=== PATIENT | male | born 1975 | race Asian ===

== ENCOUNTER 2017-04-05 05:44 | Emergency (ER) | payer BC ==
[2017-04-05 06:02] VITALS: BP 153/104; TEMP 98.5; O2SAT 97
[2017-04-05] MEDS ORDERED: COLCHICINE 0.6 MG TAB PO ONE (06:08)
--- NOTE | 2017-04-05 06:11 | ED.PDOC ---
History of Present Illness - General Chief Complaint: Lower Extremity Injury Stated Complaint: right foot pain Time Seen by Provider: 04/05/17 06:04 Source: patient Exam Limitations: no limitations - History of Present Illness Initial Comments: the patient is a 41-year-old male presenting to the emergency room secondary to pain in his right first metatarsophalangeal joint. Pain has been present for 1 day. Pain is worse with movement and palpation. There is mild erythema over the site. No other areas of inflammation. His father did have gout a few months ago. No fever. No obvious extending cellulitis. Timing/Duration: 24 hours Severity: moderate Improving Factors: immobilization Worsening Factors: movement Associated Symptoms: denies symptoms Allergies/Adverse Reactions: Allergies NO KNOWN ALLERGY Allergy (Verified 04/05/17 05:57) Home Medications: Ambulatory Orders Colchicine [Colcrys] 0.6 mg PO PRN #10 tab 04/05/17 Review of Systems - Review of Systems Constitutional: States: no symptoms reported EENTM: States: no symptoms reported Respiratory: States: no symptoms reported Cardiology: States: no symptoms reported Gastrointestinal/Abdominal: States: no symptoms reported Genitourinary: States: no symptoms reported Musculoskeletal: States: see HPI Skin: States: see HPI Neurological: States: no symptoms reported Endocrine: States: no symptoms reported All other Systems: No Change from Baseline Past Medical History (General) - Patient Medical History Hx Congestive Heart Failure: No Hx Diabetes: No Surgical History: no surgical history - Vaccination History Hx Influenza Vaccination: No - Social History Hx Tobacco Use: No Family Medical History - Family History Father Family History: Unknown Living Status: Unknown Physical Exam - Physical Exam General Appearance: Alert, No apparent distress Eye Exam: bilateral normal Ears, Nose, Throat: hearing grossly normal Neck: full range of motion Respiratory: no respiratory distress, no accessory muscle use Cardiovascular/Chest: normal peripheral pulses, no edema Peripheral Pulses: radial,right: 2+, radial,left: 2+, dorsalis pedis,right: 2+, dorsalis pedis,left: 2+ Rectal Exam: deferred Extremity: normal range of motion, no pedal edema, no calf tenderness, normal capillary refill, inflammation, swelling, other - see history of present illness 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 The patient is given 1.2 mg of colchicine. He will be written for a prescription of colchicine. He needs to improve his hydration status. He needs to keep the foot warm. He needs to avoid large alcohol or meat intakes. If he has multiple recurrent flares then he may need to see his primary care doctor for additional lab testing for possible prophylactic medications. ER warnings were given for any significant worsening. Departure - Departure Clinical Impression: Podagra Disposition: Discharge to Home or Self Care Condition: Fair Departure Forms: ED Discharge - Pt. Copy, Patient Portal Self Enrollment Instructions: DI for Gout Diet: other - low protein and low alcohol diet Activity: increase activity as tolerated Prescriptions: Colchicine [Colcrys] 0.6 mg PO PRN #10 tab Home Medications: Ambulatory Orders Colchicine [Colcrys] 0.6 mg PO PRN #10 tab 04/05/17 Additional Instructions: the patient's 41-year-old male presenting with what appears to be his first episode of podagra on the right. The patient is given 1.2 mg of colchicine. He will be written for a prescription of colchicine. He needs to improve his hydration status. He needs to keep the foot warm. He needs to avoid large alcohol or meat intakes. If he has multiple recurrent flares then he may need to see his primary care doctor for additional lab testing for possible prophylactic medications. ER warnings were given for any significant worsening. he should follow-up with his primary care doctorearly next week regardless.
== END 2017-04-05 06:24 | disposition home or self-care (01) ==
LOC: ER 05:44
DX: M10.9 Gout, unspecified (principal)

== ENCOUNTER 2017-05-16 23:57 | Emergency (ER) | payer BC ==
[2017-05-17] MEDS ORDERED: HYDROmorphone HCL INJ 2 MG/ML VIAL IV ONE
[2017-05-17] MEDS ORDERED: ONDANSETRON INJ 4 MG/2 ML VIAL IV ONE
[2017-05-17] MEDS ORDERED: SODIUM CHLORIDE 0.9% 1000ML 1,000 ML IVS ONE (00:03)
--- NOTE | 2017-05-17 00:04 | ED.PDOC ---
History of Present Illness - General Chief Complaint: Abdominal Pain Stated Complaint: abdominal pain Time Seen by Provider: 05/16/17 23:59 Information Source: patient, RN notes reviewed, Vital Signs reviewed Exam Limitations: no limitations Additional Information: Epigastric and RUQ colicky pain intermittent over the past several days, worsening today. N/V associated with pain over the past several days as well. Pain worse after eating fatty foods such as reis and rice. 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 Improving Factors: nothing Associated Symptoms: nausea/vomiting - intermittent Review of Systems - Review of Systems Constitutional: States: no symptoms reported EENTM: States: no symptoms reported Respiratory: States: no symptoms reported Cardiology: States: no symptoms reported Gastrointestinal/Abdominal: States: see HPI, abdominal pain Genitourinary: States: no symptoms reported Musculoskeletal: States: no symptoms reported Skin: States: no symptoms reported Neurological: States: no symptoms reported Endocrine: States: no symptoms reported Hematologic/Lymphatic: States: no symptoms reported Past Medical History (General) - Patient Medical History Hx Congestive Heart Failure: No Hx Diabetes: No - Vaccination History Hx Influenza Vaccination: No - Social History Hx Tobacco Use: No Family Medical History - Family History Father Family History: Unknown Living Status: Unknown Physical Exam - Physical Exam General Appearance: Alert, Restless - initially, improved s/p Dilaudid Eyes, Ears, Nose, Throat Exam: PERRL/EOMI, normal ENT inspection - no scleral icterus Neck: non-tender, full range of motion, supple Respiratory: no respiratory distress, no accessory muscle use Cardiovascular/Chest: normal peripheral pulses, regular rate, rhythm, no edema Gastrointestinal/Abdominal: soft, tenderness - positive hadley's sign. Tenderness in epigastric and RUQ region. 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 findings consistent with Cholecystitis. Pt stable for discharge home with strict return precautions, need to follow a low-fat/no-fat diet, and follow-up with surgeon as an outpatient. 05/17/17 01:27 CT Scan Report: EXAM DESCRIPTION: Abdomen/Pelvis w/Contrast CLINICAL HISTORY: 41 years Male, periumbilical abdominal pain, colic, writhing COMPARISON: None. TECHNIQUE: Contiguous axial CT images of the abdomen and pelvis were acquired after the administration of intravenous contrast. Coronal and sagittal reformatted images are provided. This exam was performed according to our departmental dose-optimization program which includes use of Automated Exposure Control, adjustment of the mA and/or kV according to patient size and/or use of iterative reconstruction technique. FINDINGS: Chest base: There is mild bibasilar atelectasis. Liver: Findings suggestive of diffuse hepatic steatosis. No focal lesions. Gallbladder: Diffuse gallbladder wall thickening and edema without radiopaque stone. Spleen: Unremarkable. Adrenals: Unremarkable. Pancreas: Unremarkable. Right Kidney: No renal stones or hydronephrosis. Left Kidney: No renal stones or hydronephrosis. Aorta and branch vessels: Unremarkable. Lymph nodes: No lymphadenopathy. Bowels: No obstruction. Colon: No wall thickening. Appendix: Normal. Peritoneum: No free air or free fluid. Pelvic organs: Unremarkable. Bladder: Unremarkable. Bones and soft tissues: No acute osseous or soft tissue abnormalities. IMPRESSION: Diffuse gallbladder wall thickening and edema. Although no radiopaque stone is identified, these findings are concerning for acute cholecystitis. Hepatic steatosis. Electronically signed by: Alfie Landin MD 05/17/2017 12:59 AM AUTOMATIC DRY STARCH OPERATOR Dictated By: ALFIE LANDIN Dr. Signed By: ALFIE LANDIN Dr. Dictated Date/Time: 05/17/17 0001 Transcribed Date/Time: 05/17/17 0001 Leather Tacker: COURTNEY Signed Date/Time: 05/17/17 0059 CC: - Results/Orders Results/Orders: 05/17/17 00:02 Hold Metformin x 48Hrs [id number] Laboratory Results - last 24 hr 05/17/17 05/17/17 05/17/17 00:08 00:08 01:00 WBC 12.0 H RBC 6.13 H Hgb 17.8 Hct 52.0 MCV 84.8 MCH 29.0 MCHC 34.2 RDW 12.4 Plt Count 244 MPV 7.8 Absolute Neuts (auto) 7.00 H Absolute Lymphs (auto) 3.30 Absolute Monos (auto) 1.10 H Absolute Eos (auto) 0.50 H Absolute Basos (auto) 0.00 Neutrophils % 58.4 Lymphocytes % 27.3 Monocytes % 9.4 H Eosinophils % 4.6 Basophils % 0.3 Sodium 138 Potassium 3.9 Chloride 100 L Carbon Dioxide 28 Anion Gap 13.9 BUN 15 Creatinine 0.63 BUN/Creatinine Ratio 23.8 H Random Glucose 121 H Serum Osmolality 277.8 Calcium 9.7 Total Bilirubin 2.0 H AST 70 H ALT 86 H Alkaline Phosphatase 92 Serum Total Protein 8.2 Albumin 4.6 Globulin 3.6 H Albumin/Globulin Ratio 1.3 Urine Color Yellow Urine Appearance Clear Urine pH 7.5 Ur Specific [place] 1.015 Urine Protein Negative Urine Glucose (UA) Negative Urine Ketones Trace Urine Blood Negative Urine Nitrite Negative Urine Bilirubin Negative Urine Urobilinogen 1.0 Ur Leukocyte Esterase Negative Urine RBC 0 Urine WBC 0 Ur Epithelial Cells 0 Amorphous Sediment 2+ Urine Bacteria 1+ 05/17/17 05/17/17 00:00 01:00 Temperature 97.8 F Pulse Rate [ 87 90 monitor] Respiratory 22 18 Rate Blood Pressure 187/135 153/91 [left arm] O2 Sat by Pulse 98 Oximetry - EKG/XRAY/CT CT: Abd/Pelvis - see above Departure - Departure Clinical Impression: Biliary colic, Cholecystitis Time of Disposition: 01:49 Disposition: Discharge to Home or Self Care Condition: Fair Departure Forms: ED Discharge - Pt. Copy, Patient Portal Self Enrollment Instructions: DI for Cholecystitis Diet: low fat, low cholesterol - No fatty foods. Referrals: Gunner Mendoza MD [Active Staff] - 1-5 Days (Call Dr. Mendoza's office in the am on 17 May 2017 in order to schedule a follow-up.) Home Medications: Ambulatory Orders Colchicine [Colcrys] 0.6 mg PO PRN #10 tab 04/05/17 Additional Instructions: Low Fat/No Fat diet. Stay well hydrated with water. Return to ER if symptoms recur or worsen. Follow-up with Primary Care Provider as well within the next 3 to 5 days.
[2017-05-17 00:36] VITALS: TEMP 97.8; O2SAT 98
--- NOTE | 2017-05-17 01:00 | CT ---
EXAM DESCRIPTION: Abdomen/Pelvis w/Contrast CLINICAL HISTORY: 41 years Male, periumbilical abdominal pain, colic, writhing COMPARISON: None. TECHNIQUE: Contiguous axial CT images of the abdomen and pelvis were acquired after the administration of intravenous contrast. Coronal and sagittal reformatted images are provided. This exam was performed according to our departmental dose-optimization program which includes use of Automated Exposure Control, adjustment of the mA and/or kV according to patient size and/or use of iterative reconstruction technique. FINDINGS: Chest base: There is mild bibasilar atelectasis. Liver: Findings suggestive of diffuse hepatic steatosis. No focal lesions. Gallbladder: Diffuse gallbladder wall thickening and edema without radiopaque stone. Spleen: Unremarkable. Adrenals: Unremarkable. Pancreas: Unremarkable. Right Kidney: No renal stones or hydronephrosis. Left Kidney: No renal stones or hydronephrosis. Aorta and branch vessels: Unremarkable. Lymph nodes: No lymphadenopathy. Bowels: No obstruction. Colon: No wall thickening. Appendix: Normal. Peritoneum: No free air or free fluid. Pelvic organs: Unremarkable. Bladder: Unremarkable. Bones and soft tissues: No acute osseous or soft tissue abnormalities. IMPRESSION: Diffuse gallbladder wall thickening and edema. Although no radiopaque stone is identified, these findings are concerning for acute cholecystitis. Hepatic steatosis. Electronically signed by: Oracio Landin MD 05/17/2017 12:59 AM BOOK SEWER
[2017-05-17] MEDS ORDERED: ACETAMINOPHEN W/COD #3 TAB (ER Disp) PO ONE (01:23)
[2017-05-17 01:39] VITALS: BP 130/88
== END 2017-05-17 01:43 | disposition home or self-care (01) ==
LOC: ER 23:57
DX: K81.9 Cholecystitis, unspecified (principal)
CPT/HCPCS: 36415; 36416; 74177; 80053; 81001; 85025; J1170; J2405; J7030